=== PATIENT | male | born 1995 | race African-American/Black ===

== ENCOUNTER 2016-04-18 09:13 | Emergency (ER) | payer SELFPAY ==
[2016-04-18 09:38] VITALS: BP 112/74
--- NOTE | 2016-04-18 10:29 | ER Document Report ---
ED Flu Like - General Chief Complaint: Flu Symptoms Stated Complaint: FLU SYMPTOMS Time seen by provider: 10:18 Mode of Arrival: Ambulatory Information source: Patient Notes: This 21-year-old male patient comes emergency room with flulike symptoms for the past 4-5 days. He had chills, headache, runny nose, and some vomiting. He has had a cough with some white sputum. He did not get a flu shot this year. He works as a cook at the [employer]. TRAVEL OUTSIDE OF THE [place] IN LAST 30 DAYS: No - Related Data Allergies/Adverse Reactions: No Known Allergies Allergy (Unverified 04/18/16 09:34) Past Medical History - General Information source: Patient - Social History Smoking Status: Current Every Day Smoker Cigarette use (# per day): Yes - / PPD Chew tobacco use (# tins/day): No Smoking Education Provided: No Frequency of alcohol use: None Drug Abuse: None Occupation: cook at the [employer] Family History: Reviewed & Not Pertinent Patient has suicidal ideation: No Patient has homicidal ideation: No - Medical History Medical History: Negative Surgical Hx: Negative Review of Systems - Review of Systems Constitutional: Chills, Fever, Other - Body aches EENT: Nose congestion, Nose discharge, Sinus pressure Cardiovascular: No symptoms reported Respiratory: Cough, Sputum - Quite Gastrointestinal: Nausea, Vomiting Musculoskeletal: No symptoms reported Skin: No symptoms reported Hematologic/Lymphatic: No symptoms reported Neurological/Psychological: Headaches - Frontal headache with this illness Physical Exam - Vital signs Vitals: Temp Pulse Resp BP Pulse Ox 97.7 F 87 18 112/74 100 04/18/16 09:37 04/18/16 09:37 04/18/16 09:37 04/18/16 09:37 04/18/16 09:37 Interpretation: Normal - HEENT Head: Normocephalic, Atraumatic Eyes: Normal Pupils: PERRL Tympanic membrane: Retracted Nasal: Other - Some nasal and sinus congestion Pharynx: Normal Neck: Normal - Respiratory Respiratory status: No respiratory distress Breath sounds: Nonproductive cough - Course breath sounds with forced cough - Cardiovascular Rhythm: Regular - Abdominal Inspection: Normal Bowel sounds: Normal Tenderness: Nontender - Back Back: Normal - Extremities General upper extremity: Normal inspection General lower extremity: Normal inspection - Neurological Neuro grossly intact: Yes - Psychological Associated symptoms: Normal affect, Normal mood - Skin Skin Temperature: Warm Skin Moisture: Dry Skin Color: Normal Course - Vital Signs Vital signs: Temp Pulse Resp BP Pulse Ox 97.7 F 87 18 112/74 100 04/18/16 09:37 04/18/16 09:37 04/18/16 09:37 04/18/16 09:37 04/18/16 09:37 Discharge - Discharge Clinical Impression: Influenza Condition: Stable Disposition: HOME, SELF-CARE Additional Instructions: Influenza: What are conditions that should receive medical attention? The development of difficulty breathing. Lip color changes to blue or purple. Persistent vomiting and unable to keep liquids down with signs of dehydration such as: dizziness when standing, unable to urinate, or if child/ is crying no tears are noticed. Is less responsive than normal or becomes confused. How do I decrease the spread of flu in my home? Taking care of the sick patient at home: Keep the sick person in a room separate from the common areas of the house. Keep the "sickroom" door closed. If the person with the flu needs to leave the home, they should cover their nose/mouth when coughing or sneezing and wear a disposable (surgical) mask if available. These masks may be available at your local pharmacy, medical supply and hardware store. If the sick person is in common areas of the house, have them wear a surgical mask. If possible, have the sick person use a separate bathroom that should be cleaned daily with a household disinfectant. Household Cleaning, laundry and waste disposal: Tissues and other disposable items used by the sick person should be thrown away in the trash. Wash your hands after touching these used items. No special waste disposal is required. Keep surfaces (especially bedside tables, bathroom surfaces, and toys for children) clean by wiping them down with a safe household disinfectant according to the directions on the product label. Per CDC advice, most people will not receive testing to confirm flu. . For more information, you can call the Centers for Disease Control and Prevention (CDC) Hotline at 4-666-GZG-INFO This line is available in Persian and Haitian, 24 hours a day, 7 days a week. Or www.[employer] or www.cdc.gov Flu-Like Illness Home Instructions: The influenza virus infection can cause a wide rage of symptoms, including: Fever, cough, sore throat, body aches, headaches, chills, fatigue, with some patients reporting diarrhea and vomiting Like seasonal influenza A, H1N1 ("swine flu")in humans can vary in severity from mild to severe Severe illness with pneumonia, respiratory failure and even is possible Certain groups might be more likely to develop a severe illness from H1N1 infection. Sometimes bacterial infections may occur at the same time as or after infection with influenza viruses and lead to pneumonias, ear infections, or sinus infections. How Flu Spreads The main way that influenza viruses spread is through respiratory droplets of coughs and sneezes. This can happen when someone with the infection coughs or sneezes and the particles fly through the air and land on other people and surfaces. If the person covers their mouth and nose with their hand but does not wash their hands immediately, then these germs are passed onto the next object that they touch. People with Influenza A who are cared for at home should: Check with their doctor about any special care that they might need if they are or have a health condition such as diabetes, heart disease, asthma or emphysema. Also, limit caregiver to one (if possible). women or those with chronic health conditions should not take care of the flu patient unless necessary. Check with their doctor about whether or not medications are needed that may lessen the symptoms of the flu. Stay at home until 24 hours fever free without the use of fever reducing medication. Get plenty of rest and avoid other healthy people in your home. Drink plenty of clear liquids to keep from getting dehydrated. Take medications like Tylenol (Acetaminophen), Advil/Motrin/Nuprin ( Ibuprofen) or Aleve (Naproxen) for fevers and aches. All children under the age of 18 years of age should not take aspirin or products containing aspirin (e.g. Pepto Bismol), as this can cause a rare serious illness called Demetrius Syndrome. Over the counter medications for flu and colds may help, but it is very important to follow the package directions. Remember that the medicine may help the symptoms, but it will not help prevent others from getting sick if they are around you. Cover coughs and sneezes using your bent arm. Clean hands with soap and water or an alcohol-based hand rub often, especially after using tissues to cough or sneeze. Encourage hand washing frequently for all people living in the home! The sick person should not have visitors other than caregivers. Encourage concerned loved ones to call instead of visit. Avoid close contact with others-do not go to work or school while sick. TAKE TYLENOL EVERY FOUR HOURS FOR FEVER AND PAINS. TAKE MOTRIN OR ALEVE FOR PAIN. DRINK PLENTY OF FLUIDS. TRY ROBITUSSIN-DM FOR COUGH CONTROL. GET PLENTY OF REST AND SLEEP. GET A FLU SHOT NEXT YEAR. RETURN TO THE EMERGENCY ROOM IF ANY NEW OR WORSENING SYMPTOMS. Forms: Return to Work
== END 2016-04-18 10:54 | disposition home or self-care (01) ==
LOC: ER 09:13
DX: J11.1 Influenza due to unidentified influenza virus with other respiratory manifestations (principal); R51 Headache; R09.89 Other specified symptoms and signs involving the circulatory and respiratory systems; R11.10 Vomiting, unspecified; R05 Cough; F17.210 Nicotine dependence, cigarettes, uncomplicated
CPT/HCPCS: 99283

== ENCOUNTER 2017-07-11 03:46 | Emergency (ER) | payer SELFPAY ==
[2017-07-11 03:54] VITALS: BP 112/74
[2017-07-11] MEDS ORDERED: IBUPROFEN SUSP 100 MG/5 ML ORAL SYRINGE PO ONE (04:07)
[2017-07-11] MEDS ORDERED: PENICILLIN V POTASSIUM 250 MG/5 ML SUSP 100 ML PO ONE (04:08)
--- NOTE | 2017-07-11 04:08 | ER Document Report ---
ED General - General Chief Complaint: Headache Stated Complaint: TOOTHACHE Time Seen by Provider: 07/11/17 04:03 Notes: Patient is a 22-year-old male presents with complaint of a toothache that causes a headache for the last 1 month. He says it is intermittent. He says it comes and goes. He said he has had it for the last 24 hours and therefore is come to the ER. He has not seen a dentist. When asked which tooth hurts he points at his left upper premolar. No fevers. No vomiting. No diarrhea. No facial swelling. No difficulty breathing. No other complaints at this time. Patient says he cannot swallow pills and therefore has not taken anything for pain at home. TRAVEL OUTSIDE OF THE [place] IN LAST 30 DAYS: No - Related Data Allergies/Adverse Reactions: No Known Allergies Allergy (Unverified 04/18/16 09:34) Past Medical History - Social History Smoking Status: Unknown if Ever Smoked Frequency of alcohol use: None Drug Abuse: None Family History: Reviewed & Not Pertinent Renal/ Medical History: Denies: Hx Peritoneal Dialysis Review of Systems - Review of Systems Notes: My Normal Review Basic REVIEW OF SYSTEMS: CONSTITUTIONAL : Denies fever EENT: Tooth ache CARDIOVASCULAR: Denies chest pain. RESPIRATORY: Denies cough, cold, or chest congestion. Denies shortness of breath, difficulty breathing, or wheezing. NEUROLOGICAL: Denies altered mental status or loss of consciousness. Has a headache. ALL OTHER SYSTEMS REVIEWED AND NEGATIVE. Physical Exam - Vital signs Vitals: Temp Pulse Resp BP Pulse Ox 98.6 F 80 16 112/74 99 07/11/17 03:51 07/11/17 03:51 07/11/17 03:51 07/11/17 03:51 07/11/17 03:51 - Notes Notes: General Appearance: Well nourished, alert, cooperative, no acute distress, no obvious discomfort. Ill-appearing. Vitals: reviewed, See vital signs table. Head: no swelling or tenderness to the head Eyes: PERRL, EOMI, Conjuctiva clear Mouth: No decreasd moisture. Do not see any gingival swelling or significant dental caries. Throat: No tonsillar inflammation, No airway obstruction, No lymphadenopathy Neck: Supple, no neck tenderness, No neck swelling Neuro: speech clear, oriented x 3, normal affect, responds appropriately to questions. Course - Re-evaluation Re-evalutation: 07/11/17 04:23 Patient describes his pain as a pain that radiates from the tooth up into his face causing a headache. He says is been very intermittent for the last month. He still seen a dentist. I informed him that he must call around to find a dentist to try to fit him in the neck within the next week. Informed him that will place him on antibiotic as well as liquid pain medicine to help treat him until he can see a dentist. Encouraged her return to ER immediately if he has severe headache, vomiting, fevers, facial swelling, or difficulty breathing or swallowing. Patient agrees with plan will be discharged home. Dictation of this chart was performed using voice recognition software; therefore, there may be some unintended grammatical errors. 07/11/17 04:24 - Vital Signs Vital signs: Temp Pulse Resp BP Pulse Ox 98.6 F 80 16 112/74 99 07/11/17 03:51 07/11/17 03:51 07/11/17 03:51 07/11/17 03:51 07/11/17 03:51 Discharge - Discharge Clinical Impression: Toothache Headache Qualifiers: Headache type: unspecified Headache chronicity pattern: episodic headache Intractability: not intractable Qualified Code(s): R51 - Headache Condition: Good Disposition: HOME, SELF-CARE Instructions: Penicillin V K ([facility]) Additional Instructions: Please take the Motrin for pain and take the penicillin as prescribed. You need to make an appointment with a dentist to reevaluate your tooth and make a plan for definitive treatment. Please return to the ER if you have worsening pain, fevers, facial swelling, or difficulty swallowing. Prescriptions: Ibuprofen [Motrin 100 Mg/5 Ml Oral Susp] 500 mg PO Q6 PRN #500 ml PRN Reason: pain Penicillin V Potassium [Penicillin Vk 250 mg/5Ml Susp 100 ml] 10 ml PO BID 7 Days #140 ml
[2017-07-11] MEDS ORDERED: PENICILLIN V POTASSIUM 250 MG/5 ML SUSP 100 ML ONE (04:42)
== END 2017-07-11 04:54 | disposition home or self-care (01) ==
LOC: ER 03:46
DX: K08.89 Other specified disorders of teeth and supporting structures (principal); R51 Headache
CPT/HCPCS: 99283; J3490